=== PATIENT | female | born 2000 | race Caucasian/White ===

== ENCOUNTER 2024-04-26 12:45 | Emergency (ER) | payer SELFPAY ==
[~2024-04-26] VITALS: Ht 167.6 cm; Wt 81.8 kg
[2024-04-26 12:52] VITALS: BP 124/66; PULSE 83; RESP 16; TEMP 98.2; O2SAT 100
[2024-04-26 14:32] LABS: BASOPHILS % (AUTO) 0.3 % (0.0-2.0); HEMATOCRIT 37.7 % (36-46); HEMOGLOBIN 12.4 g/dL (12.0-16.0); LYMPHOCYTES % (AUTO) 26.9 % (22.0-44.0); MEAN CORPUSCULAR HEMOGLOBIN 30.2 pg (26.0-34.0); MEAN CORPUSCULAR VOLUME 92 fL (80-100); MONOCYTES # (AUTO) 0.6 K/uL (0.1-1.0); MONOCYTES % (AUTO) 8.4 % (2.0-9.0); NEUTROPHILS # (AUTO) 4.8 K/uL (1.8-7.7); NEUTROPHILS % (AUTO) 63.4 % (40.0-70.0); PLATELET COUNT (AUTO) 253 K/uL (150-450); RED BLOOD CELL COUNT(AUTO) 4.11 MIL/uL (4.00-5.20); RED CELL DISTRIBUTION WIDTH 13.2 % (11.5-14.5); WHITE BLOOD COUNT (AUTO) 7.5 K/uL (4.5-11.0)
[2024-04-26] MEDS ORDERED: PREN-61 PO (15:59)
== END 2024-04-26 16:13 | disposition home or self-care (01) ==
LOC: EMS 13:04
DX: O20.9 Hemorrhage in early pregnancy, unspecified (principal); Z3A.01 Less than 8 weeks gestation of pregnancy
CPT/HCPCS: 76801; 84702; 85025; 99284